=== PATIENT | female | born 1950 | race Caucasian/White ===

== ENCOUNTER 2016-10-05 08:04 | Day surgery (SDC) | payer MEDICARE ==
[~2016-10-05] VITALS: Ht 165.1 cm; Wt 127.0 kg
[~2016-10-05 08:04] MED LIST: CELEXA20 MG PO; DULOXETINE 30MG30 MG PO; LEVOTHYROXINE0.05 MG PO; LISINOPRIL 20MG20 MG PO; MOBIC15 MG PO; NORCO1 TAB PO; PRAVASTATIN 20M20 MG PO; RALOXIFENE HYDR60 MG PO; [UNRECOGNIZED DRUG - OTHER] PO
[2016-10-05 08:15] VITALS: BP 147/76
[2016-10-05 08:29] VITALS: BP 147/76
[2016-10-05 08:30] VITALS: BP 155/101
--- NOTE | 2016-10-05 08:36 | Procedure Note ---
Procedure detail Date of procedure: 10/05/16 Anesthesiologist: Fermin rodriguez CRNA Complications: None Pre-procedure diagnosis: Disc disease of the lumbar spine Post-procedure diagnosis: Same Indications for procedure: This patient's a pleasant morbidly obese 65-year-old white female we are treating for low back pain secondary to degenerative disease lumbar spine multiple levels lumbar radiculopathy symptoms. Patient is status post one lumbar epidural steroid injection she reports 75 percent improvement lasting 4-5 days. After which time her pain began return to baseline although not in its entirety. Patient reports the low back pain as constant, dull, aching. Also, she complains of bilateral hip and leg radiculopathy symptoms at times. Patient rates her low back pain 5/10. Patient's asking for a second lumbar epidural steroid injection. We'll perform one today Procedure detail: Procedure: Lumbar epidural steroid injection under fluoroscopy Informed consent was obtained and the risks and benefits of the procedure were explained to the patient. The patient was taken to the procedure room and noninvasive monitors placed, including noninvasive blood pressure cuff and pulse oximeter. The back was viewed using C-arm Fluoroscopy and prepped using Betadine as a cleansing solution and the L4-L5 interspace was palpated. Skin and subcutaneous tissues were anesthetized using lidocaine 1.5% and a 25-gauge needle. After this, an 18-gauge Touhy epidural needle was placed into the L4-L5 interspace and advanced using fluoroscopic guidance and loss of resistance to air until the epidural space was encountered. After confirmation of needle placement in the epidural space, with dye, a solution containing lidocaine 1.5%, 4 mL and Depo-Medrol 80 mg were incrementally injected into the lumbar epidural space. The patient tolerated the procedure well with no complications. The patient was observed in the Pain Clinic and then discharged home neurologically intact. Plan and disposition: We'll follow up with this patient in 2 weeks in our clinic reassess her symptoms at that time at 0835
[2016-10-05 08:46] VITALS: BP 157/76
[2016-10-29] MEDS ORDERED: NORCO1 TAB PO ×2 (09:44)
== END 2016-10-05 08:46 ==
LOC: PM 08:04
PROC: 3E0R33Z Introduction of Anti-inflammatory into Spinal Canal, Percutaneous Approach (ICD-10-PCS; principal; 2016-10-05)
PROC: 3E0R3BZ Introduction of Anesthetic Agent into Spinal Canal, Percutaneous Approach (ICD-10-PCS; 2016-10-05)
DX: M51.16 Intervertebral disc disorders with radiculopathy, lumbar region (principal)
CPT/HCPCS: J1040

== ENCOUNTER → 2017-08-26 | Outpatient (CLI) | payer MEDICARE ==
--- NOTE | 2017-08-29 08:23 | RADIOLOGY REPORT PS360 ---
MRI-L-SPINE W/O, \RI-3D RENDERING/MYELOGRAM Ordering Physician: ESTEBAN RODRIGUEZ CRNA Patient Age: 66 years: Female HISTORY: BACK PAINlow low back pain for years right hip and right leg numbness. Pain has gotten worse since prior studies. TECHNIQUE. Sagittal STIR, T1, T2, axial T1 and T2. On 1.5T Siemens wide bore MRI. 3-D MR myelogram image set obtained & performed on MRI workstation. Additional sagittal thin section T2 weighted dataset obtained from this latter acquisition as well (---76 CPT) COMPARISON :MRI lumbar spine August 2013 FINDINGS .. Lumbar vertebral bodies are intact t L5/S1 disc height maintained. Mild degenerative disc bulge most evident central with prominent posterior element hypertrophy. Moderate recess and foraminal encroachment bilaterally mainly due to the facet hypertrophy L4/5. Exuberant facet hypertrophy narrow the spinal canal with on prominent central canal stenosis and bilateral foraminal encroachment.. Mild Degenerative disc space narrowing similar to previous studies. Asymmetric disc bulge the right, yield additional encroachment upon encroaching upon right foramen is nicely reflected in the 3-D MRI myelogram image set . Combination of features yields prominent right recess and foraminal encroachment with prominent central canal stenosis. On axial images I would additionally note the facet hypertrophy indenting the right aspect of thecal sac axial image 38 L3/4. Mild disc bulge most evident towards left foramen. Moderate Facet hypertrophy. Mild/moderate bilateral foraminal encroachment,. Mild/moderate central canal stenosis similar to perhaps slightly more pronounced than previous study. L2/3 mild reactive endplate changes inferior L2 similar to previous study. Mild stable degenerative disc space narrowing. Mild disc bulge most evident at foramen mild foraminal encroachment. The facet hypertrophy indents the posterior right aspect of thecal sac more to the left qqqderline L1/2. Mild disc bulge, most evident to the right and left midline modest AP dimension of foramen. T12/L1. Mild disc bulge most evident midline and to the right some of the study. 3-D MRI myelogram image set shows the spinal stenosis most pronounced at L 4/5 on indenting the thecal sac on right more so than left. IMPRESSION------- Similar findings to previous study with perhaps incremental progression L4/5. Prominent central canal stenosis due to the facet hypertrophy and eccentric disc bulge to the right. Also Bilateral recess & foraminal encroachment most pronounced on right due to these features. The right foraminal encroachment at this level appears very slightly more pronounced than 2013 & best seen on sagittal images today L3/4. Mild/moderate spinal stenosis. Mainly due to posterior element/facet hypertrophy. Only mild disc bulge most evident towards foramen.Mild/moderate foraminal encroachment-. L5/S1 exuberant facet hypertrophy yielding recess & foraminal encroachment bilateral- appears similar to previous studies. . Mild degenerative changes also seen at L1/2, T12/L1 disc levels appears similar.
== END ==
LOC: RAD 08:00
DX: M54.5 Low back pain (principal)